=== PATIENT | female | born 1990 ===

== ENCOUNTER 2019-04-29 10:37 | Emergency (ER) | payer SELFPAY ==
[~2019-04-29] VITALS: Ht 157.5 cm; Wt 41.3 kg
[2019-04-29 10:59] VITALS: BP 108/76; Ht 157.5 cm; Wt 41.3 kg
== END 2019-04-29 11:17 | disposition home or self-care (01) ==
LOC: ED 10:37
DX: S50.861A Insect bite (nonvenomous) of right forearm, initial encounter (principal); S10.96XA Insect bite of unspecified part of neck, initial encounter; S90.562A Insect bite (nonvenomous), left ankle, initial encounter; L08.9 Local infection of the skin and subcutaneous tissue, unspecified; Z91.018 Allergy to other foods; Z88.8 Allergy status to other drugs, medicaments and biological substances; W57.XXXA Bitten or stung by nonvenomous insect and other nonvenomous arthropods, initial encounter; Y93.89 Activity, other specified; Y92.89 Other specified places as the place of occurrence of the external cause; Y99.8 Other external cause status